=== PATIENT | female | born 1985 | race Caucasian/White ===

== ENCOUNTER → 2017-06-27 | Outpatient (CLI) | payer MEDICAID ==
[~2017-06-27] MED LIST: ACET-3017 PO; ALP25 PO; AMO875 PO; ATEN-65 PO; CHO4 PO; CITRACEL PO; CYC10 PO; DEPO; DIC10 PO; DICY10CA62 PO; DON PO; HYDR-385 PO; HYDR28OI11 TP; IBUP600T22 PO; KET10 PO; LEV137; LEVO100T95 PO; LOR5 PO; LOR5/325 PO; MED150I IM; MIR PO; OMEP-153 PO; OND4; ONDA4TAB PO; PRO25; PRO25 PO; [UNRECOGNIZED DRUG - CODE] PO
--- NOTE | 2017-06-27 14:44 | RADIOLOGY IMAGING REPORT ---
[place] [facility] [place] Catherine Colindres : 1985 MR: [id number] V: [id number] EXAM DATE: ORDERING PHYSICIAN: JENNY SABA TECHNOLOGIST: Location: [facility] - [place] Patient: Catherine Colindres : 1985 Visit/Account:[id number] Date of Sevice: 06/27/2017 EXAMINATION: MRI Cervical spine without intravenous contrast HISTORY: Neck pain. Left arm pain. COMPARISON: Cervical spine radiographs dated 11/17/2009. TECHNIQUE: Multi-planar, multi-sequence cervical spine MRI was performed without intravenous contras t administration. FINDINGS: Alignment: Straightening of the normal lordosis. Vertebral marrow signal: Negative. Cranio-cervical junction: Negative. Visualized posterior fossa: Negative. Soft tissues: Negative. Cervical cord: Negative. Disc Spaces: C1-2: Negative. C2-3: Small broad-based posterior disc osteophyte complex with no significant stenosis. C3-4: Mild circumferential disc osteophyte complex. No significant stenosis. C4-5: Negative. C5-6: Mild disc at loss with circumferential disc osteophyte complex. Mild spinal canal stenosis. Mil d bilateral neural foraminal stenosis, left slightly worse than right. C6-7: Negative. C7-T1: Negative. Upper thoracic spine: Negative. IMPRESSION: Mild multilevel degenerative disc disease with straightening of the normal lordosis, most severe at C 5-C6. Report Dictated By: Gage Jacobsen MD at 06/27/2017 2:36 PM Report E-Signed By: Gage Jacobsen MD at 06/27/2017 2:40 PM WSN:[id number]
== END ==
LOC: MRI 02:42
PROVIDERS: ATTEND Physician Assistant Medical
DX: M47.892 Other spondylosis, cervical region (principal)
CPT/HCPCS: 72141

== ENCOUNTER 2018-05-20 10:41 | Emergency (ER) | payer MEDICAID ==
--- NOTE | 2018-05-20 11:06 | ER Report ---
History and Physical Time Seen By MD: 11:06 Hx. of Stated Complaint: CHEST PAIN "FEELS LIKE SOMETHING IS GRABBING MY HEART" PALPITATIONS AND DIFFICULTY GETTING A GOOD BREATH. TINGLING IN L ARM HPI/ROS CHIEF COMPLAINT: Chest pain HISTORY OF PRESENT ILLNESS: This is a 33-year-old female presents to the emergency department for chest pain. Patient states that last night she was standing in her kitchen and suddenly developed left anterior chest pain with numbness down the left arm, she states she did take some Aleve, the pain waxed and waned. She woke this morning she had the same chest pain however she states that increased in intensity like somebody is grabbing her heart. She has also had aches and chills, and nausea no vomiting. No diarrhea. No recent injuries. No headaches. No rashes. REVIEW OF SYSTEMS: Constitutional: As above. Eyes: No discharge. ENT: No sore throat. Cardiovascular: As above. Respiratory: No cough, no shortness of breath. Gastrointestinal: No abdominal pain, no vomiting. Genitourinary: No hematuria. Musculoskeletal: No back pain. Skin: No rashes. Neurological: No headache. Allergies: Coded Allergies: latex (Verified Allergy, Intermediate, RASH/ITCHING, 05/27/12) No Known Drug Allergies (Verified , 09/19/11) Home Meds Active Scripts Hydrocodone Bit/Acetaminophen (HYDROCODON-ACETAMINOPHEN 5-325) 1 Each Tablet, 1 EACH PO Q12H PRN for PAIN, #10 TAB Prov:DHRUV CHOI PA-C 08/04/16 Reported Medications Vit/Iron Fumarate/Fa ( 19 CHEWABLE TABLET) 1 Each Tab.chew, 1 EACH PO DAILY Please continue taking vitamins daily while . 09/06/12 Ibuprofen (IBUPROFEN) 600 Mg Tablet, 600 MG PO Q6H PRN, #30 Please take every 6 hours, as needed for milder pain and please also take with food. 09/06/12 Acetaminophen With Codeine # 3 (TYLENOL WITH CODEINE #3 TABLET) 1 Each Tablet, 1 - 2 EACH PO Q6H PRN, #30 PLEASE TAKE FOR STRONGER PAIN THEN MOTRIN WILL RELIEVE AND PLEASE TAKE NO MORE THEN 8 TABLETS PER DAY. 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 76 80 Resp 16 B/P (MAP) 115/81 115/81 (92) Pulse Ox 98 96 O2 Delivery Room Air 05/20/18 05/20/18 05/20/18 05/20/18 11:00 11:11 11:26 11:30 Pulse 75 85 B/P (MAP) 101/79 (86) 146/122 (130) Pulse Ox 97 92 05/20/18 05/20/18 05/20/18 05/20/18 11:41 11:56 12:00 12:11 Pulse 58 67 55 B/P (MAP) 101/79 (86) Pulse Ox 93 86 95 05/20/18 05/20/18 12:26 12:30 Pulse 58 B/P (MAP) 91/71 (78) Pulse Ox 92 Physical Exam General Appearance: The patient is alert, has no immediate need for airway protection and no signs of toxicity. Eyes: Pupils equal and round no pallor or injection. ENT, Mouth: Mucous membranes are moist. Respiratory: There are no retractions, lungs are clear to auscultation. Cardiovascular: Regular rate and rhythm, no murmurs, clicks or rubs. Gastrointestinal: Abdomen is soft and non tender, no masses, bowel sounds normal. Neurological: Alert and oriented 4. Moving all extremities. Following all commands. No focal neuro deficits. Skin: Warm and dry, no rashes. Musculoskeletal: Neck is supple non tender. Extremities are nontender, nonswollen and have full range of motion. DIFFERENTIAL DIAGNOSIS: After history and physical exam differential diagnosis was considered for chest pain including but not limited to myocardial ischemia, pericarditis pulmonary embolus, chest wall pain, pleural inflammation and pulmonary infectious causes. Medical Decision Making Data Points Result Diagram: 05/20/18 1058 05/20/18 1058 Laboratory Hematology Test 05/20/18 10:58 05/20/18 11:30 Red Blood Count 4.88 M/uL (4.17-5.56) Mean Corpuscular Volume 91.0 fL (80.0-96.0) Mean Corpuscular Hemoglobin 31.5 pg (26.0-33.0) Mean Corpuscular Hemoglobin Concent 34.6 g/dL (32.0-36.0) Red Cell Distribution Width 14.0 % (11.5-14.5) Mean Platelet Volume 7.2 fL (7.2-11.1) Neutrophils (%) (Auto) 67.3 % (39.4-72.5) Lymphocytes (%) (Auto) 27.1 % (17.6-49.6) Monocytes (%) (Auto) 4.4 % (4.1-12.4) Eosinophils (%) (Auto) 0.8 % (0.4-6.7) Basophils (%) (Auto) 0.4 % (0.3-1.4) Nucleated RBC Relative Count (auto) 0.4 /100WBC Neutrophils # (Auto) 5.1 K/uL (2.0-7.4) Lymphocytes # (Auto) 2.1 K/uL (1.3-3.6) Monocytes # (Auto) 0.3 K/uL (0.3-1.0) Eosinophils # (Auto) 0.1 K/uL (0.0-0.5) Basophils # (Auto) 0.0 K/uL (0.0-0.1) Nucleated RBC Absolute Count (auto) 0.03 K/uL D-Dimer Quantitative (PE/DVT) 0.31 ug/ml (0-0.50) Sodium Level 139 mmol/L (137-145) Potassium Level 4.1 mmol/L (3.5-5.0) Chloride Level 106 mmol/L (98-107) Carbon Dioxide Level 25 mmol/L (22-31) Blood Urea Nitrogen 15 mg/dl (7-18) Creatinine 0.80 mg/dl (0.52-1.04) Glomerular Filtration Rate Calc > 60.0 Random Glucose 99 mg/dl (75-110) Calcium Level 9.3 mg/dl (8.4-10.2) Total Bilirubin 0.3 mg/dl (0.2-1.3) Aspartate Amino Transf (AST/SGOT) 23 U/L (0-35) Alanine Aminotransferase (ALT/SGPT) 25 U/L (0-56) Alkaline Phosphatase 75 U/L (0-126) Troponin I < 0.012 ng/ml Total Protein 7.7 g/dl (6.3-8.2) Albumin 4.6 g/dl (3.5-5.0) Influenza Virus Type A (PCR) Negative (NEGATIVE) Influenza Virus Type B (PCR) Negative (NEGATIVE) Chemistry Test 05/20/18 10:58 05/20/18 11:30 White Blood Count 7.6 k/uL (4.5-11.0) Red Blood Count 4.88 M/uL (4.17-5.56) Hemoglobin 15.4 g/dL (12.0-16.0) Hematocrit 44.4 % (34.0-47.0) Mean Corpuscular Volume 91.0 fL (80.0-96.0) Mean Corpuscular Hemoglobin 31.5 pg (26.0-33.0) Mean Corpuscular Hemoglobin Concent 34.6 g/dL (32.0-36.0) Red Cell Distribution Width 14.0 % (11.5-14.5) Platelet Count 302 K/uL (150-450) Mean Platelet Volume 7.2 fL (7.2-11.1) Neutrophils (%) (Auto) 67.3 % (39.4-72.5) Lymphocytes (%) (Auto) 27.1 % (17.6-49.6) Monocytes (%) (Auto) 4.4 % (4.1-12.4) Eosinophils (%) (Auto) 0.8 % (0.4-6.7) Basophils (%) (Auto) 0.4 % (0.3-1.4) Nucleated RBC Relative Count (auto) 0.4 /100WBC Neutrophils # (Auto) 5.1 K/uL (2.0-7.4) Lymphocytes # (Auto) 2.1 K/uL (1.3-3.6) Monocytes # (Auto) 0.3 K/uL (0.3-1.0) Eosinophils # (Auto) 0.1 K/uL (0.0-0.5) Basophils # (Auto) 0.0 K/uL (0.0-0.1) Nucleated RBC Absolute Count (auto) 0.03 K/uL D-Dimer Quantitative (PE/DVT) 0.31 ug/ml (0-0.50) Glomerular Filtration Rate Calc > 60.0 Calcium Level 9.3 mg/dl (8.4-10.2) Total Bilirubin 0.3 mg/dl (0.2-1.3) Aspartate Amino Transf (AST/SGOT) 23 U/L (0-35) Alanine Aminotransferase (ALT/SGPT) 25 U/L (0-56) Alkaline Phosphatase 75 U/L (0-126) Troponin I < 0.012 ng/ml Total Protein 7.7 g/dl (6.3-8.2) Albumin 4.6 g/dl (3.5-5.0) Influenza Virus Type A (PCR) Negative (NEGATIVE) Influenza Virus Type B (PCR) Negative (NEGATIVE) Coagulation Test 05/20/18 10:58 D-Dimer Quantitative (PE/DVT) 0.31 ug/ml EKG/Imaging EKG Interpretation 12 lead EKG: Time of EKG 1101. Rhythm: Normal sinus rhythm, ventricular rate 77 bpm. [place]: normal QRS: normal ST segments: No ST depression or elevation identified. Flattened T-wave in V2 otherwise unremarkable. Imaging 2 VIEWS CHEST INDICATION: Chest pain shortness breath. History smoking. COMPARISON: 06/08/2009. FINDINGS: Cardiomediastinal silhouette and pulmonary vessels within normal limits. There is no focal infiltrate or lobar consolidation. There is no pneumothorax or pleural effusion. No nodule. Upper abdomen is unremarkable. No acute bony abnormality. IMPRESSION: 1. No acute cardiopulmonary process. Report Dictated By: Henry Solano at 05/20/2018 12:38 PM Report E-Signed By: Henry Solano at 05/20/2018 12:39 PM WSN:[id number] ED Course/Re-evaluation Clinical Indication for ER IV: Hydration, IV Access ED Course The patient was admitted to room. A history of physical were obtained. Differen tial diagnoses were considered. An IV was started. A CBC, CMP and troponin were obtained. Laboratory studies were unremarkable, negative troponin. His pain started last night there was no indication for a repeat troponin. EKG showing normal sinus rhythm, chest x-ray negative for any acute cardiopulmonary process. I did review the studies with the patient, did tell her that there were no concerning findings today, that the pain could be secondary to a viral illness or muscle strain. Patient will follow-up with her primary care provider later this week, she had no other questions or concerns at this time and was discharged home. Patient was in agreement with this plan care. Decision to Disposition Date: May 20, 2018 Decision to Disposition Time: 12:59 Depart Departure Latest Vital Signs Vital Signs Date Time Temp Pulse Resp B/P (MAP) Pulse Ox O2 Delivery O2 Flow Rate FiO2 05/20/18 12:30 91/71 (78) 05/20/18 12:26 58 92 05/20/18 10:44 97.4 16 Room Air Impression: Primary Impression: Chest pain of unknown etiology Condition: Improved Disposition: HOME OR SELF-CARE Referrals: VALERIE GRANDA PA-C (PCP) 1 Week Patient Instructions: Chest Pain (ED) Additional Instructions: There are no concerning findings on the laboratory studies today, EKG or chest x-ray. This chest pain manifestation could be secondary to a viral illness. Please follow-up with your primary care provider within one week for reevaluation and consideration of more in-depth evaluation. Drink plenty of water. Get plenty of rest. Take ibuprofen or Tylenol as needed for aches and pains. Return to the ER for any other concerns or worsening symptoms. MYLES SPEAR COASTAL TUG MATE-BC May 20, 2018 11:06
[2018-05-20] MEDS ORDERED: NS(*) 0.9% 1000 ML BAG 1,000 ML IV ONE (11:14)
[2018-05-20] MEDS ORDERED: ASPIRIN 81 MG CHEW PO ONE (11:15)
[2018-05-20] MEDS ORDERED: ONDANSETRON 4 MG/2 ML VIAL IVP ONE (11:15)
[2018-05-20 11:23] LABS: PLATELET COUNT, AUTOMATED 302 K/uL (150-450)
--- NOTE | 2018-05-20 11:56 | EKG ---
[place] [facility] [place]: ROSIO HOLLEY : [id number] MR: [id number] V: [id number] EXAM DATE: ORDERING PHYSICIAN: MYLES SPEAR TECHNOLOGIST: Test Reason : Blood Pressure : / mmHG Vent. Rate : 077 BPM Atrial Rate : 077 BPM P-R Int : 154 ms QRS Dur : 074 ms QT Int : 396 ms P-R-T Axes : 072 045 037 degrees QTc Int : 448 ms Normal sinus rhythm Normal ECG When compared with ECG of 08.05.2016 No significant change was found Confirmed by Vic Zarate ([id number] on 05/20/2018 10:39:34 PM Referred By: Confirmed By:Vic Salter
[2018-05-20 12:30] VITALS: BP 91/71
--- NOTE | 2018-05-20 12:43 | RADIOLOGY IMAGING REPORT ---
FACILITY: [facility] - [place] PATIENT NAME: Catherine Colindres : 1985 MR: [id number] V: [id number] EXAM DATE: ORDERING PHYSICIAN: MYLES SPEAR TECHNOLOGIST: Location: [facility] - [place] Patient: Catherine Colindres : 1985 Visit/Account:[id number] Date of Sevice: 05/20/2018 2 VIEWS CHEST INDICATION: Chest pain shortness breath. History smoking. COMPARISON: 06/08/2009. FINDINGS: Cardiomediastinal silhouette and pulmonary vessels within normal limits. There is no focal infiltrate or lobar consolidation. There is no pneumothorax or pleural effusion. No nodule. Upper abdomen is unremarkable. No acute bony abnormality. IMPRESSION: 1. No acute cardiopulmonary process. Report Dictated By: Henry Solano at 05/20/2018 12:38 PM Report E-Signed By: Henry Solano at 05/20/2018 12:39 PM WSN:[id number]
== END 2018-05-20 13:00 | disposition home or self-care (01) ==
LOC: ER 11:21
DX: R07.9 Chest pain, unspecified (principal)
CPT/HCPCS: 71046; 84484; 85025; 85379; 87502; 93005; 96361; 96374; 99284; J2405; J7030; 82040; 82247; 82310; 82374; 82435; 82565; 82947; 84075; 84132; 84155; 84295; 84450; 84460; 84520